=== PATIENT | female | born 1960 | race Caucasian/White ===

== ENCOUNTER 2016-06-29 09:35 | Observation (INO) ==
[2016-06-29] MEDS ORDERED: ONDANSETRON 4 MG/2 ML VIAL IV PRN (10:15)
[2016-06-29] MEDS ORDERED: ASPIRIN 325 MG TABLET PO STA (10:15)
[2016-06-29] MEDS ORDERED: NITROGLYCERIN SL 0.4 MG TABLET SL PRN (10:15)
[2016-06-29] MEDS ORDERED: ALUM/MAG/SIMETH/LIDO VISC 1:1 30 ML BOTTLE PO STA (10:15)
--- NOTE | 2016-06-29 10:19 | Emergency Department Note ---
Arrival - Arrival Chief Complaint: Blood Pressure Stated Complaint: High BP 180/100. chest pain ED Nursing Triage Note: Pt c/o high blood pressure with nausea since Day states she started to notice sx after starting Megared. Pt then states she started to have Chest pain since yesterday afternoon. Mode of Arrival: Ambulatory Limitations: No Limitations Source: Patient, RN Notes Reviewed Time Seen by Provider: 06/29/16 10:15 - History of Present Illness HPI Narrative: Patient is a 55-year-old white female who complains of substernal chest pain which she describes as "indigestion". This is been present for about 10 days. She denies any associated vomiting diaphoresis or shortness of breath. She does have occasional nausea. She denies that any particular activity makes her pain worse. Pain began at rest. It is considered mild. The patient does have a history of hypertension and borderline hyperlipidemia. She does not smoke cigarettes. She denies any fever cough or chills. Onset (ago): day(s) (10) Consistency: constant Severity: mild, moderate Quality: aching Allergies/Adverse Reactions: Allergies Allergy/AdvReac Type Severity Reaction Status Date / Time acetaminophen [From Lortab] Allergy Unknown/Unable Verified 06/29/16 09:38 to obtain hydrocodone [From Lortab] Allergy Unknown/Unable Verified 06/29/16 09:38 to obtain codeine AdvReac Unknown/Unable Verified 06/29/16 09:38 to obtain sertraline [From Zoloft] AdvReac Palpitation Verified 06/29/16 09:38 s Shellfish AdvReac Nausea Verified 06/29/16 09:38 Home Medications: Home Medications Medication Instructions Recorded Confirmed Type Aspirin EC Tab 81 mg PO DAILY 06/29/16 06/29/16 History Nebivolol [Bystolic] 5 mg PO DAILY 06/29/16 06/29/16 History Polyethylene Glycol Powder 17 gm PO DAILY PRN 06/29/16 06/29/16 History [Miralax] Review of System - Review of System 12 point system: reviewed and no additional remarkable complaints except as stated - Review of System Constitutional: Absent: chills, fever Respiratory: Absent: cough, respiratory distress Cardiovascular: Present: as per HPI, chest pain. Absent: palpitations, dyspnea on exertion, orthopnea, edema Medical,Surgical,& Family Hx - Medical History Medical History: noncontributory Cardio: History of: Hypertension - Social History Smoking Status: Never smoker Exam Vital Signs: Vital Signs Temperature 96.5 F L 06/29/16 09:40 Pulse Rate 72 06/29/16 09:40 Respiratory Rate 18 06/29/16 09:40 Blood Pressure 190/51 06/29/16 09:40 O2 Sat by Pulse Oximetry 99 06/29/16 09:40 GENERAL: This is a well-nourished well-developed white female in no apparent distress. VITAL SIGNS: Reviewed HEENT: Head is atraumatic and normocephalic. Pupils are equal round react to light. Extraocular movements are intact. Oropharynx is benign with moist mucous membranes. NECK: Neck is soft and supple without tenderness. There are no masses. There is no lymphadenopathy. LUNGS: Lungs are clear to auscultation. Chest rises symmetrically. There is no chest wall tenderness. CV: Heart is regular rate and rhythm without murmurs rubs or gallops. ABDOMEN: Abdomen is soft, nontender to palpation. There are no abdominal abnormal masses palpated. There is no organomegaly. Bowel sounds are present and active. SKIN: Skin is warm and dry. No rash. EXTREMITIES: Patient has full range of motion without tenderness. There is no pedal edema. NEUROLOGIC: Awake alert and oriented 4. Cranial nerves II through XII are grossly intact. Motor is 5 over 5 in all extremities bilaterally. Course - Consultations Consultation #1: Discussed with hospitalist. Patient will be admitted to their service. Time: 12:46 Results - Labs CBC & BMP: 06/29/16 10:13 06/29/16 10:13 Lab Results: I have reviewed the patients labs Labs: Laboratory Tests 06/29/16 10:13 INR 1.0 Laboratory Tests 06/29/16 10:13 Troponin I < 0.015 - EKG EKG results: interpreted by ERMD - Impressions EKG: Normal sinus rhythm with sinus arrhythmia, rate 66, nonspecific ST-T wave changes, normal axis. - Diagnostic Findings Procedure: Chest x-ray: image reviewed by me (No cardiomegaly, no pleural effusions, no infiltrates.) Disposition Clinical Impression: Chest pain, Essential hypertension Case discussed with: patient Condition: Stable
[2016-06-29] MEDS ORDERED: METOPROLOL TARTRATE 5 MG/5 ML VIAL IV STA (10:20)
[2016-06-29 10:24] LABS: Basophils % 0.3 % (0.0-0.8); Eosinophils # 0.1 10*3/uL (0.0-0.87); Eosinophils % 0.7 % (0.00-10.9); Hemoglobin 12.9 GM/DL (12.0-16.0); Immature Granulocytes % 0.4 %; Immature Granulocytes Absolute 0.03 #; Lymphocytes # 1.3 10*3/uL (1.4-4.0); Lymphocytes % 17.2 % (21.3-54.2); Mean Corpuscular HGB Conc 33.9 GM/DL (32-36); Mean Corpuscular Hemoglobin 31 PG (27-34); Mean Corpuscular Volume 90.3 FL (87-102); Mean Platelet Volume 10.2 FL (9.6-12.0); Monocytes # 0.4 10*3/uL (0.11-0.8); Monocytes % 5.9 % (1.7-12.7); Neutrophils # 5.7 10*3/uL (1.4-7.4); Neutrophils % 75.5 % (38.7-73.9); Platelet Count 227 10*3/uL (130-400); Red Blood Count 4.21 10*6/uL (3.8-5.5); Red Cell Distribution Width 13.5 % (9.3-17.3); White Blood Count 7.5 10*3/uL (4.5-13.71)
[2016-06-29] MEDS ORDERED: ALUM/MAG/SIMETH/LIDO VISC 1:1 30 ML BOTTLE PO ONE (10:25)
[2016-06-29] MEDS ORDERED: METOPROLOL TARTRATE 5 MG/5 ML VIAL IV ONE (10:25)
[2016-06-29] MEDS ORDERED: ASPIRIN 325 MG TABLET ONE (10:25)
[2016-06-29 10:33] LABS: PT Patient Result 10.7 SECS; Partial Thromboplastin Time 25.7 SECS (0-40)
--- NOTE | 2016-06-29 10:37 | XRay Report ---
XR chest 1V portable Indication: Chest pain Comparison: None available Findings: The heart and mediastinum are normal in size and configuration. The pulmonary vascularity is normal in caliber. No lung infiltrates, effusions, pneumothorax or other abnormality is demonstrated. Impression: Normal chest x-ray PROCEDURE INTERPRETED AT [facility] DEPARTMENT OF RADIOLOGY Final Report Signed by: Dr. Wilfredo Brennan
[2016-06-29 11:07] LABS: Albumin 4.3 G/DL (3.4-5.0); Bilirubin,Total 0.4 MG/DL (0.2-1.0); Calcium 9.5 MG/DL (8.5-10.1); Osmolality,Calculated 284.8 MOS/KG (273-304); Potassium 3.9 MMOL/L (3.5-5.1); Total Protein 7.6 G/DL (6.4-8.3)
[2016-06-29] MEDS ORDERED: ENOXAPARIN 80 MG/0.8 ML SYRINGE SUBCUT STA (12:34)
[2016-06-29] MEDS ORDERED: MORPHINE 2 MG/1 ML SYRINGE ONE (12:42)
[2016-06-29] MEDS ORDERED: NITROGLYCERIN 2% OINT 1 INCH/GM PACK TOP ONE (12:42)
[2016-06-29] MEDS ORDERED: ONDANSETRON 4 MG/2 ML VIAL ONE (12:43)
[2016-06-29] MEDS ORDERED: MORPHINE 2 MG/1 ML SYRINGE IV STA (13:12)
[2016-06-29] MEDS ORDERED: NITROGLYCERIN 2% OINT 1 INCH/GM PACK TOP STA (13:14)
[2016-06-29] MEDS ORDERED: MORPHINE 2 MG/1 ML SYRINGE IV PRN (13:14)
[2016-06-29] MEDS ORDERED: LACTULOSE 20 GM/30 ML UDCUP PO PRN (13:14)
[2016-06-29] MEDS ORDERED: POLYETHYLENE GLYCOL POWDER 17 GM PACK PO PRN (13:16)
[2016-06-29] MEDS ORDERED: SODIUM CHLORIDE 0.9% 1,000 ML IV SCH (13:30)
[2016-06-29] MEDS ORDERED: ENOXAPARIN 40 MG/0.4 ML SYRINGE SUBCUT SCH (15:00)
[2016-06-29] MEDS ORDERED: ENOXAPARIN 80 MG/0.8 ML SYRINGE SUBCUT ONE (15:42)
--- NOTE | 2016-06-29 16:09 | EKG Report ---
Stationary ECG Study [facility] Test Date: 06/29/2016 4:08:39 PM Pat Name: RO LUNA Department: Room: Gender: F Machine Staker: : 1960 Requested by: Tomas Noriega Order Number: [id number] Reading MD: YOLA AGUILA Intervals [place] Rate: 66 P: 46 NE: 147 QRS: 28 QRSD: 85 T: 45 QT: 405 QTc: 418 Interpretive Statements SINUS RHYTHM Electronically Signed On 06-29-16 17:03:47 CATERING ASSISTANT by YOLA AGUILA [email or web address]
[2016-06-29] MEDS: PANTOPRAZOLE 40 MG VIAL IV SCH ×2 (17:25→21:07)
[2016-06-29] MEDS ORDERED: CARVEDILOL 12.5 MG TABLET PO SCH (21:00)
[2016-06-30 04:55] LABS: Basophils % 0.5 % (0.0-0.8); Eosinophils # 0.2 10*3/uL (0.0-0.87); Eosinophils % 2.6 % (0.00-10.9); Hematocrit 34.1 VOL% (35.7-47.0); Hemoglobin 11.2 GM/DL (12.0-16.0); Immature Granulocytes % 0.2 %; Immature Granulocytes Absolute 0.01 #; Lymphocytes % 34.7 % (21.3-54.2); Mean Corpuscular HGB Conc 32.8 GM/DL (32-36); Mean Corpuscular Hemoglobin 30 PG (27-34); Mean Corpuscular Volume 91.7 FL (87-102); Mean Platelet Volume 10.3 FL (9.6-12.0); Monocytes # 0.5 10*3/uL (0.11-0.8); Monocytes % 9.3 % (1.7-12.7); Neutrophils # 3.1 10*3/uL (1.4-7.4); Neutrophils % 52.7 % (38.7-73.9); Platelet Count 201 10*3/uL (130-400); Red Blood Count 3.72 10*6/uL (3.8-5.5); Red Cell Distribution Width 13.6 % (9.3-17.3); White Blood Count 5.8 10*3/uL (4.5-13.71)
[2016-06-30 05:17] LABS: Risk Ratio 3.61; VLDL CHOLESTEROL 19.4 MG/DL
--- NOTE | 2016-06-30 05:59 | EKG Report ---
Stationary ECG Study [facility] Test Date: 06/29/2016 9:44:03 AM Pat Name: RO LUNA Department: Room: 286 Gender: F Fire Fighter: : 1960 Requested by: Tomas Noriega Order Number: [id number] Reading MD: MICAH MACEDO Intervals [place] Rate: 66 P: 85 VA: 146 QRS: 32 QRSD: 86 T: 23 QT: 354 QTc: 368 Interpretive Statements SINUS RHYTHM WITH SINUS ARRHYTHMIA at 66 bpm LOW QRS VOLTAGE IN CHEST LEADS RSR (QR) IN V1/V2 CONSISTENT WITH RIGHT VENTRICULAR CONDUCTION DELAY NONSPECIFIC T WAVE ABNORMALITY Electronically Signed On 06-30-16 12:12:20 SOW MANAGER by MICAH MACEDO [email or web address]
[2016-06-30 08:17] LABS: Troponin I Only < 0.015 NG/ML (0.00-0.045)
--- NOTE | 2016-06-30 08:57 | Hospitalist Progress Note ---
Assessment and Plan (1) Atypical chest pain Status: Acute Assessment and plan: Axillae her symptoms are all GI related and she did get relief with Protonix. Her cardiac enzymes is negative with no EKG changes. Her blood pressure has been stable since being here. Most continue low-dose Coreg will arrange for her to have follow-up as an outpatient with Dr. Clayton and she wished to get established with him. I did talk to nurse practitioner Yesika about the case and she is in agreement. Current Visit: Yes (2) GERD (gastroesophageal reflux disease) Status: Acute Assessment and plan: Symptoms sound typical for GERD. She was started on IV Protonix and appears that burning sensation has resolved. I will obtain a GI consultation for further evaluation. Current Visit: Yes (3) Essential hypertension Status: Acute Current Visit: Yes Hospitalist: Subjective Interval history: History 41-year-old female with a history of dyslipidemia and hypertension presented complaining of epigastric pain with radiation to the lower sternum. She described as a burning sensation. She was admitted overnight and serial cardiac enzymes negative with no EKG changes. She was started on IV Protonix which appears to resolve her symptoms. Complaint this morning is bloating which she says constant. Exam - Constitutional Vitals: Period Temp Pulse Resp BP Sys/Shirley Pulse Ox Last 24 Hr 98.0 F-98.8 F 52-59 14-20 106-141/60-83 94-99 General appearance: no acute distress - Head Head exam: Present: normocephalic, atraumatic - Eye Eye exam: Present: EOMI Pupils: Present: IVA - ENT ENT exam: Present: normal exam - Neck Neck exam: Present: normal inspection - Respiratory Respiratory exam: Present: clear to auscultation bilaterally - Cardiovascular Cardiovascular exam: Present: regular rate and rhythm - GI/Abdominal GI/Abdominal exam: Present: normal bowel sounds, soft - Extremities Exam Extremities exam: Present: full ROM - Neurological Exam Neurological exam: Present: alert, oriented X3, CN II-XII intact - Psychiatric Psychiatric exam: Present: normal affect, normal mood - Skin Skin exam: Present: warm, intact Results - Labs CBC & BMP: 06/30/16 04:24 06/29/16 10:13 Specialty Discharge - Follow Up or Referrals - Discharge Medications No Action Polyethylene Glycol Powder [Miralax] 17 gm PO DAILY PRN PRN Reason: Constipation Aspirin EC Tab 81 mg PO DAILY Nebivolol [Bystolic] 5 mg PO DAILY
[2016-06-30] MEDS ORDERED: NEBIVOLOL 5 MG TABLET PO SCH (09:00)
[2016-06-30] MEDS ORDERED: ASPIRIN EC 81 MG TABLET PO SCH (09:00)
[2016-06-30] MEDS: PANTOPRAZOLE 40 MG VIAL IV SCH (09:35)
[2016-06-30] MEDS ORDERED: ACETAMINOPHEN 325 MG TABLET PO PRN (09:38)
--- NOTE | 2016-06-30 11:22 | Cardiology Consult Note ---
History of Present Illness - Data of Consult Patient: new to practice - Consult Narrative History of present illness: Cardiology note 55-year-old woman admitted with epigastric pain.She has chronic GE reflux symptoms. Barbecue sauce, onions, spaghetti, pizza, generally causes heartburn. She denies melena. She does not use nonsteroidals. No documented EKG shows sinus rhythm with preserved airways and ST-T wave changes. Troponin is negative 3. Chest x-ray is negative. History of peptic ulcer disease. No history of exertional angina. No history of syncope or palpitations. The patient does have hypertension and takes Bystolic 5 mg daily. Her blood pressure has been running high and she has been having more headaches than usual the past 2 weeks. Lifetime non-smoker and nondrinker. No history of diabetes. Lipid panel showed total cholesterol 202 triglycerides 97 LDL 140 HDL 56 She is 5 feet 4 inch tall weighs 161 pounds. Her mother age 31 from a seizure disorder. Her father has had 3 hypertensive strokes. Her brother is 66 years old and has a pacemaker defibrillator and had bypass surgery age 48. Uncle of a heart attack at age 52. Aunt a heart attack at age 78 Allergies include codeine and Lortab Blood pressure 140/82 pulse is 58 and respirations 18. Bilateral arcus. No xanthelasma. No carotid bruit. Flat neck veins. Clear lungs. Regular rhythm. No murmur gallop or rub. No chest wall tenderness to palpation. Abdomen soft benign. Femoral pulses 2+ without bruit. Distal pulses 2+. No leg edema. Impression GE reflux chronic with recent exacerbation Chronic hypertension with recent escape control. She has been having headaches the past 2 weeks Lifetime non-smoker and nondrinker No history of exertional angina 5 feet 4-161 pounds Family history CAD Plan Home okay with me Continue Bystolic 5 mg daily Protonix 40 mg daily Routine GE reflux precautions reviewed add lisinopril 5 mg daily Office visit with EKG and outpatient stress test 1 week Findings and plan discussed with patient and her and her daughter Brianna who is a nurse CC: Jacqueline Perrin MD - Home Medications and Allergies Home Medications: Home Medications Medication Instructions Recorded Confirmed Type Aspirin EC Tab 81 mg PO DAILY 06/29/16 06/29/16 History Nebivolol [Bystolic] 5 mg PO DAILY 06/29/16 06/29/16 History Polyethylene Glycol Powder 17 gm PO DAILY PRN 06/29/16 06/29/16 History [Miralax] Allergies/Adverse Reactions: Allergies Allergy/AdvReac Type Severity Reaction Status Date / Time acetaminophen [From Lortab] Allergy Unknown/Unable Verified 06/29/16 09:38 to obtain hydrocodone [From Lortab] Allergy Unknown/Unable Verified 06/29/16 09:38 to obtain codeine AdvReac Unknown/Unable Verified 06/29/16 09:38 to obtain sertraline [From Zoloft] AdvReac Palpitation Verified 06/29/16 09:38 s Shellfish AdvReac Nausea Verified 06/29/16 09:38 Medical,Surgical,& Family Hx - Medical History Cardio: History of: Hypertension Gastrointestinal: History of: GERD, Polyps Hematology: History of: Anemia - Surgical History HEENT Surgeries: Surgical HX of: Tonsilectomy & Adenoidectomy Abdominal Surgeries: Surgical HX of: Colonoscopy, EGD Reproductive Surgeries: Surgical HX of;: Section, Tubal Ligation - Family History Family History: Reports;: Family Cancer, Family Heart Disease, Family Hypertension, Family Stroke - Social History Smoking Status: Never smoker Physical Examination Vital Signs Temp Pulse Resp BP Pulse Ox 96.5 F L 72 18 190/51 99 06/29/16 09:40 06/29/16 09:40 06/29/16 09:40 06/29/16 09:40 06/29/16 09:40 Result/EKG - Labs CBC & BMP: 06/30/16 04:24 06/29/16 10:13 Labs: Laboratory Results - last 24 hr 06/29/16 06/30/16 06/30/16 16:08 04:23 04:24 WBC 5.8 RBC 3.72 L Hgb 11.2 L Hct 34.1 L MCV 91.7 MCH 30 MCHC 32.8 RDW 13.6 Plt Count 201 MPV 10.3 Neut % (Auto) 52.7 Lymph % (Auto) 34.7 [place] % (Auto) 9.3 Eos % (Auto) 2.6 Baso % (Auto) 0.5 Neut # (Auto) 3.1 Lymph # (Auto) 2.0 [place] # (Auto) 0.5 Eos # (Auto) 0.2 Baso # (Auto) 0.0 Immature Gran % 0.2 Nucleated RBC % 0.0 Immature Gran # 0.01 Nucleated RBCs # 0.00 Total Creatine Kinase 61 CK-MB (CK-2) < 1.0 Troponin I < 0.015 < 0.015 Triglycerides Cholesterol LDL Cholesterol VLDL Cholesterol HDL Cholesterol Heart Disease Risk Ratio 06/30/16 04:24 WBC RBC Hgb Hct MCV MCH MCHC RDW Plt Count MPV Neut % (Auto) Lymph % (Auto) [place] % (Auto) Eos % (Auto) Baso % (Auto) Neut # (Auto) Lymph # (Auto) [place] # (Auto) Eos # (Auto) Baso # (Auto) Immature Gran % Nucleated RBC % Immature Gran # Nucleated RBCs # Total Creatine Kinase CK-MB (CK-2) Troponin I Triglycerides 97 Cholesterol 202 H LDL Cholesterol 140.0 VLDL Cholesterol 19.4 HDL Cholesterol 56 Heart Disease Risk Ratio 3.61 Specialty Discharge - Follow Up or Referrals - Discharge Medications No Action Polyethylene Glycol Powder [Miralax] 17 gm PO DAILY PRN PRN Reason: Constipation Aspirin EC Tab 81 mg PO DAILY Nebivolol [Bystolic] 5 mg PO DAILY
[2016-06-30 11:24] VITALS: BP 148/95
--- NOTE | 2016-06-30 11:47 | Discharge Summary ---
<Alison Paez N - Last Filed: 06/30/16 11:37> Hospital Course - Hospital Course Hospital Course: Ms. Flores is a 55 year old female who was admitted on 06/29 for chest and epigastric pain. She had serial enzymes and EKGs done which have been normal. Her symptoms are GI related and she got relief with Protonix. She was seen in consult by cardiology, Dr. Clayton, who agreed with Protonix daily, added Lisinopril, agreed with continuation of Bystolic. She will be seen in one week by Dr. Clayton and have outpt stress test and EKG. She has been educated on GI reflux precautions. She can be discharged to home today. Please see discharge medication reconciliation for accurate list. Diagnosis - Discharge Diagnosis (1) Epigastric pain Status: Acute (2) Chest pain Status: Acute (3) Essential hypertension Status: Acute Specialty Discharge - Follow Up or Referrals - Discharge Medications No Action Polyethylene Glycol Powder [Miralax] 17 gm PO DAILY PRN PRN Reason: Constipation Aspirin EC Tab 81 mg PO DAILY Nebivolol [Bystolic] 5 mg PO DAILY Discharge Plan - Discharge Data Disposition: Disch To Home/Self Care - Discharge Medications New Lisinopril [Prinivil] 40 mg PO DAILY #30 tablet Pantoprazole Tab [Protonix Tab] 40 mg PO DAILY #30 tablet Continue Polyethylene Glycol Powder [Miralax] 17 gm PO DAILY PRN PRN Reason: Constipation Aspirin EC Tab 81 mg PO DAILY Nebivolol [Bystolic] 5 mg PO DAILY - Follow Up or Referral Follow Up: Gautam Clayton MD [Physician] - 2 Weeks - Forms/Instructions Exam - Constitutional Vitals: Period Temp Pulse Resp BP Sys/Shirley Pulse Ox Last 24 Hr 96.9 F-98.8 F 52-69 14-20 106-148/60-95 94-99 Discharge Results Labs on day of discharge: Labs from last 24 hours 06/30/16 06/30/16 06/30/16 04:24 04:24 04:23 WBC 5.8 RBC 3.72 L Hgb 11.2 L Hct 34.1 L MCV 91.7 MCH 30 MCHC 32.8 RDW 13.6 Plt Count 201 MPV 10.3 Neut % (Auto) 52.7 Lymph % (Auto) 34.7 [place] % (Auto) 9.3 Eos % (Auto) 2.6 Baso % (Auto) 0.5 Neut # (Auto) 3.1 Lymph # (Auto) 2.0 [place] # (Auto) 0.5 Eos # (Auto) 0.2 Baso # (Auto) 0.0 Immature Gran % 0.2 Nucleated RBC % 0.0 Immature Gran # 0.01 Nucleated RBCs # 0.00 Total Creatine Kinase 61 CK-MB (CK-2) < 1.0 Troponin I < 0.015 Triglycerides 97 Cholesterol 202 H LDL Cholesterol 140.0 VLDL Cholesterol 19.4 HDL Cholesterol 56 Heart Disease Risk Ratio 3.61 06/29/16 16:08 WBC RBC Hgb Hct MCV MCH MCHC RDW Plt Count MPV Neut % (Auto) Lymph % (Auto) [place] % (Auto) Eos % (Auto) Baso % (Auto) Neut # (Auto) Lymph # (Auto) [place] # (Auto) Eos # (Auto) Baso # (Auto) Immature Gran % Nucleated RBC % Immature Gran # Nucleated RBCs # Total Creatine Kinase CK-MB (CK-2) Troponin I < 0.015 Triglycerides Cholesterol LDL Cholesterol VLDL Cholesterol HDL Cholesterol Heart Disease Risk Ratio DS: Provider Date of admission: 06/29/16 13:14 Primary care physician: . No PCP Attending physician on admission: Jacqueline Perrin MD Discharging clinician: DUNG Dooley <Jacqueline Perrin - Last Filed: 06/30/16 12:06> Diagnosis - Discharge Diagnosis (1) Atypical chest pain Status: Acute (2) GERD (gastroesophageal reflux disease) Status: Acute (3) Essential hypertension Status: Acute Discharge Plan - Discharge Data Condition at Discharge: Stable Discharge Diet: low salt diet, no caffiene Activity: resume usual activities as tolerated Hygiene: no restrictions Contact your physician if you experience:: fever over 101 Exam - Constitutional General appearance: no acute distress - Head Head exam: Present: normocephalic, atraumatic - Eye Eye exam: Present: EOMI Pupils: Present: IVA - Respiratory Respiratory exam: Present: clear to auscultation bilaterally - Cardiovascular Cardiovascular exam: Present: regular rate and rhythm - GI/Abdominal GI/Abdominal exam: Present: normal bowel sounds, soft - Extremities Exam Extremities exam: Present: full ROM - Neurological Exam Neurological exam: Present: alert, oriented X3, CN II-XII intact - Psychiatric Psychiatric exam: Present: normal affect, normal mood - Skin Skin exam: Present: warm, intact
== END 2016-06-30 13:15 | disposition home or self-care (01) ==
LOC: N.ED 09:35 → N.EDINP 09:35 → N.TELEN 14:01
PROVIDERS: ADMIT Family Medicine; ATTEND Family Medicine